=== PATIENT | female | born 1995 ===

== ENCOUNTER 2021-05-14 17:40 | Emergency (ER) | payer OTHER ==
[~2021-05-14] VITALS: Ht 162.6 cm; Wt 80.7 kg
[2021-05-14] MEDS ORDERED: INDERAL XL80 MG PO (17:50)
[2021-05-14] MEDS ORDERED: PRINIVIL20 MG PO (17:50)
== END 2021-05-15 | disposition home or self-care (01) ==
LOC: ER 17:40
DX: M25.511 Pain in right shoulder (principal)

== ENCOUNTER 2021-08-13 23:00 | Emergency (ER) | payer OTHER ==
[~2021-08-13] VITALS: Ht 165.1 cm; Wt 77.1 kg
[~2021-08-13 23:00] MED LIST: INDERAL XL80 MG PO; PRINIVIL20 MG PO
[2021-08-14] MEDS ORDERED: LEVSIN0.125 MG PO (03:12)
[2021-08-14] MEDS ORDERED: PROTONIX20 MG PO (03:12)
[2021-08-14] MEDS ORDERED: INTESTINEX680 M2 PO (03:12)
[2021-08-14] MEDS ORDERED: PEPCID AC20 MG PO (03:12)
[2021-08-14] MEDS ORDERED: CARAFATE1 GM PO (03:12)
== END 2021-08-14 03:26 | disposition home or self-care (01) ==
LOC: ER 23:00
DX: K52.89 Other specified noninfective gastroenteritis and colitis (principal); T62.91XA Toxic effect of unspecified noxious substance eaten as food, accidental (unintentional), initial encounter; X58.XXXA Exposure to other specified factors, initial encounter; I10 Essential (primary) hypertension; Y92.89 Other specified places as the place of occurrence of the external cause

== ENCOUNTER 2022-10-20 10:21 | Emergency (ER) | payer OTHER ==
[~2022-10-20] VITALS: Ht 165.1 cm; Wt 88.5 kg
[~2022-10-20 10:21] MED LIST changes: +CARAFATE1 GM PO; +INTESTINEX680 M2 PO; +LEVSIN0.125 MG PO; +PEPCID AC20 MG PO; +PROTONIX20 MG PO
== END 2022-10-20 16:32 | disposition home or self-care (01) ==
LOC: ER 10:21
DX: K52.9 Noninfective gastroenteritis and colitis, unspecified (principal); Z91.011 Allergy to milk products